=== PATIENT | female | born 1995 | race Caucasian/White ===

== ENCOUNTER 2020-05-12 12:43 | Emergency (ER) | payer OTHER, SELFPAY ==
[2020-05-12 12:53] VITALS: BP 126/80; PULSE 68; RESP 16; TEMP 36.8; O2SAT 100; BMI 20.7
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
[2020-05-12] MEDS: ibuprofen 600 mg Tablet PO (13:52)
[2020-05-12 13:53] VITALS: BP 115/85; PULSE 84; RESP 14; O2SAT 96
[2020-05-12] MEDS: ondansetron 2 mg/ML SDV 2 mL 4 MG IM (14:10)
[2020-05-12 14:47] VITALS: BP 111/78; PULSE 72; RESP 14; O2SAT 98
== END 2020-05-12 14:48 | disposition home or self-care (01) ==
PROVIDERS: Emergency Provider Physician Assistant; Family Provider Family Medicine
DX: S06.0X9A Concussion with loss of consciousness of unspecified duration, initial encounter (principal); S13.4XXA Sprain of ligaments of cervical spine, initial encounter; V49.9XXA Car occupant (driver) (passenger) injured in unspecified traffic accident, initial encounter
CPT/HCPCS: 12345; 70450; 71045; 72125; 96372; 96375; 99281; 99283; J2405

== ENCOUNTER → 2020-07-21 08:50 | Outpatient (BNVA) | payer OTHER, SELFPAY | PROVIDERS: Family Provider Family Medicine; Visit Provider Obstetrics & Gynecology | DX: N76.0 Acute vaginitis (principal) | CPT/HCPCS: 83036; 87491; 87591; 87661 ==

== ENCOUNTER → 2020-11-24 15:25 | Outpatient (BNVA) | payer OTHER, SELFPAY | PROVIDERS: Family Provider Family Medicine; Visit Provider Obstetrics & Gynecology | DX: A74.9 Chlamydial infection, unspecified (principal) | CPT/HCPCS: 87491; 87591 ==

== ENCOUNTER 2021-04-11 07:55 | Outpatient (CLI) | payer OTHER, SELFPAY ==
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
== END 2021-04-11 07:56 | disposition home or self-care (01) ==
LOC: RAD 08:01
PROVIDERS: PCP Family Medicine; Visit Provider Nurse Practitioner Family
DX: R10.2 Pelvic and perineal pain (principal); R10.31 Right lower quadrant pain; M54.5 Low back pain
CPT/HCPCS: 76830; 76856

== ENCOUNTER → 2022-03-11 16:27 | Outpatient (BNVA) | payer OTHER, SELFPAY | PROVIDERS: PCP Family Medicine; Visit Provider Family Medicine | DX: N39.0 Urinary tract infection, site not specified (principal) | CPT/HCPCS: 81000; 87086 ==

== ENCOUNTER → 2022-06-13 17:02 | Outpatient (BNVA) | payer OTHER, SELFPAY | PROVIDERS: PCP Family Medicine; Visit Provider Family Medicine | DX: N39.0 Urinary tract infection, site not specified (principal) | CPT/HCPCS: 81000; 87086 ==

== ENCOUNTER → 2022-09-30 10:21 | Outpatient (BNVA) | payer OTHER, SELFPAY | PROVIDERS: PCP Family Medicine; Visit Provider Nurse Practitioner Family | DX: J02.9 Acute pharyngitis, unspecified (principal) | CPT/HCPCS: 87071; 87880 ==

== ENCOUNTER → 2023-11-21 10:02 | Outpatient (BNVA) | payer OTHER, SELFPAY | PROVIDERS: PCP Family Medicine; Visit Provider Clinical Nurse Specialist Adult Health | DX: D50.9 Iron deficiency anemia, unspecified (principal) | CPT/HCPCS: 80053; 83540; 84443; 85025 ==

== ENCOUNTER → 2024-04-21 15:20 | Outpatient (BNVA) | payer OTHER, SELFPAY | PROVIDERS: PCP Family Medicine; Visit Provider Clinical Nurse Specialist Adult Health | DX: N89.8 Other specified noninflammatory disorders of vagina (principal); N76.0 Acute vaginitis | CPT/HCPCS: 81025; 87070; 87205 ==

== ENCOUNTER → 2024-04-30 10:11 | Outpatient (BNVA) | payer OTHER, SELFPAY | PROVIDERS: PCP Family Medicine; Visit Provider Clinical Nurse Specialist Adult Health | DX: N76.0 Acute vaginitis (principal) | CPT/HCPCS: 87491; 87591 ==

== ENCOUNTER 2024-09-14 08:00 | Day surgery (SDC) | payer OTHER, SELFPAY ==
--- NOTE | 2024-09-06 08:49 | P.ANESASSM_ITS ---
Pre-Anesthetic Assessment Height/Weight: Height 5 ft 5 in Preop Diagnosis: Request for sterilization Operation Date: 09/14/24 09:35 Proposed Procedures p Laparoscopic Salpingectomy 90454, Z30.2(Bilateral) - Neil Lambert MD Was Beta Jose taken within 24 hours: N/A Was Clonidine taken within 24 hours: N/A Social No alcohol and No tobacco Exam alert, oriented x 3, clear to auscultation bilaterally and regular rate & rhythm Airway Submandibular: within normal limits Cervical ROM: within normal limits Mallampati: Class I Dentition: full Anesthetic Plan ASA status: 1 Anesthesia: General Other: Patient states that she wakes up a little crazy but only other prior anesthetic was T&A as a child Plan to be n.p.o. at midnight day prior to surgery Denies any cardiac or pulmonary issues Patient does admit to having bad anxiety and requests medication prior to surgery to relaxer METs greater than 4 Plan for GETA Medications/Allergies Home Medications Medication Instructions Recorded Confirmed Last Taken Type l.norgest-eth.estradiol triphasic 1 tab PO DAILY #168 tabs 02/10/24 09/06/24 09/06/24 Rx 50-30 (6)/75-40(5)/125-30(10) tablet (Enpresse) triamcinolone acetonide 0.1 % 1 applic topical BID eczema of 03/22/24 09/06/24 Unknown Rx topical ointment hands. #30 grams Allergies Allergy/AdvReac Type Severity Reaction Status Date / Time amoxicillin Allergy Severe HIVES Verified 09/02/24 15:48 [facility] Anesthesia Medical History Iron deficiency anemia Anxiety and depression Surgical History S/P tonsillectomy and adenoidectomy S/P section Family History Grandmother Breast cancer, Onset Age: 60 maternal Diabetes maternal Hyperlipidemia paternal Hypertension maternal Mother Thyroid disease Denies family history of Clotting disorder Anesthesia complication Bleeding disorder Stroke Social History Smoking and tobacco/nicotine status: former use of tobacco/nicotine Alcohol intake: current Alcohol intake frequency: few times a month Substance/Drug Use: current Substance/Drug use frequency: daily Other substance/drug use details: has medical card Female Reproductive History Date of last menstrual period: 08/25/24 Data Anesthesia Cardiac Studies: No Data to Display
[2024-09-14] VITALS (12 sets, daily range): BP systolic 116–150; BP diastolic 77–99; PULSE 58–92; RESP 15–18; TEMP 36.3–36.5; O2SAT 97–100; BMI 24.0
--- NOTE | 2024-09-14 08:16 | W.PM.OPSUD ---
Surgery/Procedure H&P Update DATE OF PROCEDURE: September 14, 2024 DATE H&P PERFORMED: 09/02/24 H&P UPDATE INFORMATION: I have reviewed H&P completed within last 30 days, I have examined patient prior to procedure and No changes to prior documentation PREOP DIAGNOSIS: Desire permanent sterilization PLANNED PROCEDURE: Operation Date: 09/14/24 09:35 Proposed Procedures p Laparoscopic Salpingectomy 77185, Z30.2(Bilateral) - Neil Lambert MD
[2024-09-14] MEDS: scopolamine 1.5 Patch 1 PATCH TRANSDERMA (08:45)
[2024-09-14] MEDS: sodium chloride 0.9% 500 ML IV (08:46)
--- NOTE | 2024-09-14 08:47 | P.ANESUD_ITS ---
Pre-Anesthetic Update Pre-Anesthetic Assessment: Date of Surgery/Procedure: 09/14/24 Preop Jacqueline gnosis: Desire permanent sterilization Proposed Procedure: Operation Date: 09/14/24 09:35 Proposed Procedures p Laparoscopic Salpingectomy 44024, Z30.2(Bilateral) - Neil Lambert MD Any changes to Pre-Anesthetic Assessment?: No Last Intake: Intake Last Liquid Date 09/13/24 Last Liquid Time 20:00 Last Solid Date 09/13/24 Last Solid Time 20:00 Vitals: Temperature 97.3 F L 09/14/24 08:18 Temperature Source Temporal Artery S can 09/14/24 08:18 Pulse Rate 91 09/14/24 08:18 Respiratory Rate 17 09/14/24 08:18 Blood Pressure 134/98 09/14/24 08:18 Blood Pressure Mai n 110 09/14/24 08:18 Pulse Oximetry 99 09/14/24 08:18 Oxygen Delivery Me thod Room Air 09/14/24 08:19 Exam: Pre-Anes Outpt Exam: alert, oriented x 3, clear to auscultation bilaterally and regular rate & rhythm Cardiac Studies: No Data to Display
[2024-09-14] MEDS: sodium chloride 0.9% 1,000 ML 30 ML IV (08:53)
[2024-09-14] MEDS: VANCOMYCIN ADD-Vantage 1,000 MG in 0.9% NaCl ADD-Vantage 250 ML 250 MG IV (08:54)
[2024-09-14] MEDS: BUPivacaine 0.5% INJ 10 mL INJECTION (10:50)
--- NOTE | 2024-09-14 11:09 | PM.OP ---
Operative Report Date of procedure: September 14, 2024 Pre-op diagnosis: Desire permanent sterilization Post-op diagnosis: same Post-op diagnosis: Desire permanent sterilization Omental adhesions to the anterior abdominal wall Procedure done: Laparoscopic bilateral salpingectomy Lysis of adhesion Specimens removed/disposition: Left and right fallopian tube Surgeon: Neil Lambert MD Estimated blood loss (mL): 5 IV fluids (mL): 500 Urine output (mL): 100 Complications: None Findings: Omental adhesions to the anterior abdominal wall Procedure: After informed consent, the patient was taken to the operating room where general anesthesia was administered. She was placed in the dorsal lithotomy position and prepped and draped in sterile fashion. Pre-Procedure Time-Out verifying the correct patient identity, correct procedure verified with consent, correct site and side, correct patient position, availability of correct implants and any special equipment or requirements was performed and acknowledge by the OR team. The patient was examined under anesthesia and found to have a normal uterus with normal adnexa. A weighted speculum was placed in the vagina, and the anterior lip of cervix was grasped with the single toothed tenaculum. A uterine manipulator was advanced into the endocervical canal and uterus. The tenaculum was removed after uterine manipulator was secured. The speculum was removed from the vagina. An intraumbilical incision was made with a scalpel. While tenting up on the abdomen, a Verres needle was admitted into the intra-abdominal cavity. A saline drop test was performed and noted to be within normal limits. Pneumoperitoneum was attained with 4 liters of carbon dioxide. The Verres needle was removed. A 5 mm Opitc view trocar and sleeve were admitted into the abdomen and laparoscopic confirmation of location was achieved. A second incision was made 3 cm above the symphysis pubis, and a 5 mm trocar sleeves were admitted into the abdomen under direct laparoscopic visualization without complication. A survey revealed normal abdominal anatomy with the exception of omental adhesion to the anterior abdominal wall. A 5 mm blunt probe was advanced through the second trocar sleeve, and light manipulation of ovaries and uterus to assess the posterior aspects was performed. The pelvic survey shows normal uterus, left and right adnexa. The left ovary was noted with a follicular cyst. The omental adhesion was fulgurated, sealed and transected with good hemostasis with the Ligasure device. The patient was placed into Trendelenburg position. The fallopian tubes were inspected bilaterally and the fimbriated ends of the fallopian tubes were visualized bilaterally. Attention was then directed to the right side. The fallopian tube and mesosalpinx were grasped and the underlying mesosalpinx was cauterized and cut using the Ligasure device. Serial cauterization and cutting was used to separate the fallopian tube from the underlying mesosalpinx until it could be amputated cutting it approximated 2 cm from the cornua. Attention was then turned to the contralateral fallopian tube, which was removed in similar fashion. Both specimens were removed through the trocar and sent to pathology. The instruments were removed. The suprapubic trocar port was removed under direct visualization insuring good hemostasis. The carbon dioxide was allowed to escape from the abdomen. The intraumbilical trocar sleeve was withdrawn under visualization with laparoscope in the sleeve to insure hemostasis. The skin incisions were closed with 3-O Monocryl subcuticular stich and Dermabond. The instruments were removed from the vagina, and excellent hemostasis was noted. The patient tolerated the procedure well, and sponge, lap and needle count were correct times two. The patient was taken to the recovery room in good condition.
[2024-09-14] MEDS: meperidine 50 mg/mL INJ 12.5 MG IVP (11:38)
[2024-09-14] MEDS: HYDROcodone-acetaminophen 5-325 mg Tablet 1 TAB PO (12:47)
--- NOTE | 2024-09-14 13:01 | PC.NURSE ---
Guerin catheter removed per [facility] policy. 200ml yellow urine in guerin bag. pt tolerated well.
--- NOTE | 2024-09-14 13:10 | ANE.PACU2 ---
Inpatient post-anesthesia follow up: Airway intact: Yes Vital signs: Temperature 97.6 F Pulse Rate 60 Respiratory Rate 16 Blood Pressure 131/91 Pulse Oximetry 99 Oxygen Delivery Me thod Room Air Oxygen Flow Rate Fraction of Inspir ed Oxygen Hydration adequate: Yes Nausea and vomiting: No Pain level: 1 Mental status: Baseline
== END 2024-09-14 13:10 | disposition home or self-care (01) ==
PROVIDERS: PCP Family Medicine; Visit Provider Obstetrics & Gynecology
PROC: (CPT 58661; principal; 2024-09-14 09:25)
DX: Z30.2 Encounter for sterilization (principal); K66.0 Peritoneal adhesions (postprocedural) (postinfection); Z87.891 Personal history of nicotine dependence
CPT/HCPCS: 58661; 36415; 88302; J1100; J2175; J2250; J2405; J2704; J3010; J3370; J3490; J7030; J7040; J7050

== ENCOUNTER → 2024-10-28 16:39 | Outpatient (BNVA) | payer OTHER, SELFPAY | PROVIDERS: PCP Family Medicine; Visit Provider Obstetrics & Gynecology | DX: Z01.419 Encounter for gynecological examination (general) (routine) without abnormal findings (principal) | CPT/HCPCS: 88175 ==

== ENCOUNTER → 2025-03-22 11:08 | Outpatient (BNVA) | payer OTHER, SELFPAY | PROVIDERS: PCP Family Medicine; Visit Provider Family Medicine | DX: D50.8 Other iron deficiency anemias (principal); R45.86 Emotional lability; Z00.00 Encounter for general adult medical examination without abnormal findings; E03.9 Hypothyroidism, unspecified | CPT/HCPCS: 80053; 82306; 82607; 82672; 83735; 84144; 84403; 84443; 85025 ==